=== PATIENT | female | born 1965 | race Caucasian/White ===

== ENCOUNTER → 2017-05-17 | Outpatient (REF) ==
[2014-12-26 15:25] VITALS: BP 133/68
[~2017-05-17] MED LIST: BIOTIN5 MG PO; CRANBERRY400 MG PO; HYOMAX0.125 MG PO; LEVOTHYROXIN0.088 MG PO; MECLIZINE25 MG PO; MIRALAX17 GM/DOSE PO; MULTI VITAMINS1 TAB PO; PATADAY 2.5 ML2.5 ML OP; PREMARIN 0.60.625 MG PO; REFRESH OPTIVE0.4 M1 OP; REFRESH PM1 OI1 OP; VENLAFAXINE75 MG PO; XALATAN EYE DROPS OD; [UNRECOGNIZED DRUG - OTHER] PO
== END ==
LOC: LAB 07:24
DX: Z00.00 Encounter for general adult medical examination without abnormal findings (principal); E03.9 Hypothyroidism, unspecified; E03.4 Atrophy of thyroid (acquired)

== ENCOUNTER → 2018-12-25 | Outpatient (CLI) | payer BC ==
[2014-12-26 15:25] VITALS: BP 133/68
== END ==
LOC: RAD 15:44
DX: R05 Cough (principal)

== ENCOUNTER → 2019-04-24 | Outpatient (CLI) | payer BC ==
[~2019-04-24] VITALS: Ht 165.1 cm; Wt 59.1 kg
[2019-04-24 11:00] VITALS: BP 110/66
--- NOTE | 2019-04-24 12:22 | NUR ---
Oskar Stearns APRN at bedside. Patient states that she is ok with her labs not being sent to [facility], and would like [facility] lab to run them here to get lab results back today. Lab notified.
[2019-04-24 12:23] LABS: URINE WBC 0 /hpf (0-3)
[2019-04-24 12:32] LABS: HEMATOCRIT 43.5 % (37.0-47.0); HEMOGLOBIN 14.3 g/dL (12.5-16.0); MEAN CELL VOLUME 93 fl (78-100); MEAN CORPUSCULAR HEMOGLOBIN 31 pg (27-31); MEAN CORPUSCULAR HGB CONC 33 g/dL (33-37); MEAN PLATELET VOLUME 9.8 fl (7.4-10.4); PLATELET COUNT 345 K/mm3 (130-400); RED BLOOD COUNT 4.66 M/mm3 (4.10-5.30); RED CELL DISTRIBUTION WIDTH 12.5 % (11.5-14.5); WHITE BLOOD COUNT 6.7 K/mm3 (4.8-10.8)
[2019-04-24 12:52] LABS: ALBUMIN 4.1 g/dL (3.5-5.0); ALT/SGPT 23 U/L (0-55); AST-SGOT 28 U/L (5-34); CALCIUM 10.2 mg/dL (8.4-10.2); CARBON DIOXIDE 26 mmol/L (22-29); GLUCOSE 93 mg/dL (65-105); LIPASE 29 U/L (8-78); POTASSIUM 3.8 mmol/L (3.5-5.1); SODIUM 139 mmol/L (136-145); TOTAL BILIRUBIN 0.3 mg/dL (0.2-1.2); TOTAL PROTEIN 7.4 g/dL (6.4-8.3)
[2019-04-24 13:09] LABS: TROPONIN-I < 0.03 ng/mL (<0.030)
[2019-04-24 15:52] VITALS: BP 145/78
[2019-04-25 06:43] LABS: URINE APPEARANCE HAZY; URINE COLOR YELLOW
[2019-04-25 06:44] LABS: URINE BILIRUBIN NEGATIVE (NEGATIVE); URINE BLOOD NEGATIVE (NEGATIVE); URINE GLUCOSE NEGATIVE (NEGATIVE); URINE KETONE NEGATIVE (NEGATIVE); URINE LEUKOCYTE ESTERASE NEGATIVE (NEGATIVE); URINE NITRATE NEGATIVE (NEGATIVE); URINE PROTEIN(semi-quant) NEGATIVE (NEGATIVE); URINE UROBILINOGEN NORMAL (NORMAL)
== END ==
LOC: AMSURD 10:50
PROVIDERS: Nurse Practitioner Family
DX: R91.8 Other nonspecific abnormal finding of lung field (principal); R11.0 Nausea; R51 Headache; R06.02 Shortness of breath; R42 Dizziness and giddiness; R06.00 Dyspnea, unspecified
CPT/HCPCS: J1885; J2405; J2930; J7030

== ENCOUNTER → 2020-07-24 | Outpatient (CLI) | payer BC ==
[2019-04-24 15:52] VITALS: BP 145/78
[2020-07-24 15:15] LABS: URINE APPEARANCE CLEAR; URINE BILIRUBIN NEGATIVE (NEGATIVE); URINE BLOOD NEGATIVE (NEGATIVE); URINE COLOR YELLOW; URINE GLUCOSE NEGATIVE (NEGATIVE); URINE KETONE NEGATIVE (NEGATIVE); URINE LEUKOCYTE ESTERASE NEGATIVE (NEGATIVE); URINE MUCUS PRESENT (NOT PRESENT); URINE NITRATE NEGATIVE (NEGATIVE); URINE PROTEIN(semi-quant) NEGATIVE (NEGATIVE); URINE UROBILINOGEN NORMAL (NORMAL); URINE WBC 0-1 /hpf (0-3)
== END ==
LOC: LAB 15:02
PROVIDERS: Internal Medicine
DX: R50.9 Fever, unspecified (principal)

== ENCOUNTER → 2020-07-29 | Outpatient (CLI) | payer BC ==
[2019-04-24 15:52] VITALS: BP 145/78
[2020-07-29 10:51] LABS: EOS # 0.1 (0.04-0.40); HEMATOCRIT 40.9 % (37.0-47.0); HEMOGLOBIN 13.4 g/dL (12.5-16.0); LYMPH# 1.3 (1.50-4.00); MEAN CELL VOLUME 96 fl (78-100); MEAN CORPUSCULAR HEMOGLOBIN 31 pg (27-31); MEAN CORPUSCULAR HGB CONC 33 g/dL (33-37); MEAN PLATELET VOLUME 9.5 fl (7.4-10.4); MONO # 0.5 (0.20-0.80); NEU # 4.1 (1.40-6.50); PLATELET COUNT 297 K/mm3 (130-400); RED BLOOD COUNT 4.28 M/mm3 (4.10-5.30); RED CELL DISTRIBUTION WIDTH 12.3 % (11.5-14.5); WHITE BLOOD COUNT 6.1 K/mm3 (4.8-10.8)
[2020-07-29 11:00] LABS: ALBUMIN 4.1 g/dL (3.5-5.0); POTASSIUM 4.9 mmol/L (3.5-5.1)
[2020-07-29 11:01] LABS: CALCIUM 10.1 mg/dL (8.3-10.5)
[2020-07-29 11:05] LABS: TOTAL BILIRUBIN 0.2 mg/dL (0.2-1.2)
[2020-07-29 11:50] LABS: ERYTHROCYTE SEDIMENTATION RATE 38 mm/hr (0-30)
[2020-07-30 00:39] LABS: T3 TOTAL 106 ng/dL (58-159)
== END ==
LOC: RAD 10:33
PROVIDERS: Internal Medicine
DX: Z00.00 Encounter for general adult medical examination without abnormal findings (principal); R06.02 Shortness of breath

== ENCOUNTER → 2020-08-05 | Outpatient (CLI) | payer BC ==
[2019-04-24 15:52] VITALS: BP 145/78
== END ==
LOC: RAD 08:00
DX: R91.1 Solitary pulmonary nodule (principal); R59.0 Localized enlarged lymph nodes; R06.02 Shortness of breath; R50.9 Fever, unspecified
CPT/HCPCS: Q9967

== ENCOUNTER → 2020-09-25 | Outpatient (CLI) | payer BC ==
[2019-04-24 15:52] VITALS: BP 145/78
== END ==
LOC: RAD 08:39
DX: R06.02 Shortness of breath (principal)

== ENCOUNTER → 2020-11-04 | Outpatient (CLI) | payer OTHER ==
[2019-04-24 15:52] VITALS: BP 145/78
[2020-11-04 22:39] LABS: IMMUNOGLOBULIN E, TOTAL 122 IU/mL (0-100)
[2020-11-04 23:11] LABS: IMMUNOGLOBULIN G 1180 mg/dL (552-1631)
[2020-11-06 05:53] LABS: ALTERNARIA TENUIS CNT 8.85 kU/L (()); ASPERGILLUS FUMIGATUS AL COUNT 0.96 kU/L (()); BERMUDA GRASS ALLERGEN COUNT 1.35 kU/L (()); CAT DANDER ALLERGEN COUNT <0.10 kU/L (()); CLADOSPORIUM ALLERGEN COUNT 0.42 kU/L (()); COCKROACH ALLERGEN COUNT <0.10 kU/L (()); COTTONWOOD TREE ALLERGEN COUNT 1.26 kU/L (()); DOG DANDER ALLERGEN COUNT <0.10 kU/L (()); DUST MITES (D.F.) ALLERG COUNT 0.68 kU/L (()); DUST MITES (D.P.) ALLERG COUNT 0.63 kU/L (()); ELM TREE ALLERGEN COUNT 2.76 kU/L (()); FIREBUSH ALLERGEN COUNT 0.17 kU/L (()); ROUGH MARSH ELDER ALLERG COUNT 0.56 kU/L (()); RUSSIAN THISTLE ALLERGEN COUNT 1.57 kU/L (()); SHORT RAGWEED ALLERGEN COUNT 0.78 kU/L (())
== END ==
LOC: LAB 07:14
PROVIDERS: Internal Medicine Pulmonary Disease
DX: J47.9 Bronchiectasis, uncomplicated (principal)

== ENCOUNTER → 2020-12-19 | Outpatient (CLI) | payer OTHER ==
[2019-04-24 15:52] VITALS: BP 145/78
[2020-12-19 10:37] LABS: EOS % 0.2 % (1.0-5.0); WHITE BLOOD COUNT 6.1 K/mm3 (4.8-10.8)
== END ==
LOC: LAB 07:10
PROVIDERS: Internal Medicine Pulmonary Disease
DX: E03.9 Hypothyroidism, unspecified (principal)

== ENCOUNTER → 2020-12-22 | Outpatient (CLI) | payer OTHER ==
[2019-04-24 15:52] VITALS: BP 145/78
== END ==
LOC: LAB 07:24
DX: J47.9 Bronchiectasis, uncomplicated (principal); J45.909 Unspecified asthma, uncomplicated

== ENCOUNTER → 2020-12-23 | Outpatient (CLI) | payer OTHER ==
[2019-04-24 15:52] VITALS: BP 145/78
== END ==
LOC: LAB 07:23
DX: J45.909 Unspecified asthma, uncomplicated (principal); J47.9 Bronchiectasis, uncomplicated

== ENCOUNTER → 2020-12-24 | Outpatient (CLI) | payer OTHER ==
[2019-04-24 15:52] VITALS: BP 145/78
== END ==
LOC: LAB 07:26
DX: J45.909 Unspecified asthma, uncomplicated (principal); J47.9 Bronchiectasis, uncomplicated

== ENCOUNTER → 2021-03-31 | Outpatient (CLI) | payer OTHER ==
[2019-04-24 15:52] VITALS: BP 145/78
[2021-03-31 07:17] LABS: EOS % 0.4 % (1.0-5.0); HEMATOCRIT 41.3 % (37.0-47.0); HEMOGLOBIN 13.7 g/dL (12.5-16.0); LYMPH# 1.6 (1.50-4.00); MEAN CELL VOLUME 94 fl (78-100); MEAN CORPUSCULAR HEMOGLOBIN 31 pg (27-31); MEAN CORPUSCULAR HGB CONC 33 g/dL (33-37); MEAN PLATELET VOLUME 9.4 fl (7.4-10.4); MONO # 0.5 (0.20-0.80); NEU # 2.4 (1.40-6.50); PLATELET COUNT 256 K/mm3 (130-400); RED BLOOD COUNT 4.38 M/mm3 (4.10-5.30); RED CELL DISTRIBUTION WIDTH 12.4 % (11.5-14.5); WHITE BLOOD COUNT 4.5 K/mm3 (4.8-10.8)
[2021-03-31 07:53] LABS: ALBUMIN 3.9 g/dL (3.5-5.0); POTASSIUM 4.5 mmol/L (3.5-5.1)
[2021-03-31 07:54] LABS: CALCIUM 8.9 mg/dL (8.3-10.5)
[2021-03-31 07:55] LABS: TOTAL PROTEIN 7.5 g/dL (6.4-8.3)
[2021-03-31 07:57] LABS: TOTAL BILIRUBIN 0.3 mg/dL (0.2-1.2)
[2021-03-31 08:21] LABS: ERYTHROCYTE SEDIMENTATION RATE 29 mm/hr (0-30)
[2021-03-31 17:45] LABS: T3 FREE 2.3 pg/mL (1.7-3.7)
== END ==
LOC: LAB 07:02
PROVIDERS: Internal Medicine
DX: Z00.00 Encounter for general adult medical examination without abnormal findings (principal)

== ENCOUNTER → 2021-07-27 | Outpatient (CLI) | payer OTHER ==
[2021-07-27 16:32] LABS: EOS # 0.01 (0.04-0.40); EOS % 0.2 % (1.0-5.0); HEMATOCRIT 39.8 % (37.0-47.0); HEMOGLOBIN 13.6 g/dL (12.5-16.0); LYMPH# 1.52 (1.50-4.00); MEAN CELL VOLUME 95 fl (78-100); MEAN CORPUSCULAR HEMOGLOBIN 32 pg (27-31); MEAN CORPUSCULAR HGB CONC 34 g/dL (33-37); MEAN PLATELET VOLUME 9.4 fl (7.4-10.4); MONO # 0.43 (0.20-0.80); PLATELET COUNT 207 K/mm3 (130-400); RED BLOOD COUNT 4.21 M/mm3 (4.10-5.30); RED CELL DISTRIBUTION WIDTH 11.7 % (11.5-14.5); WHITE BLOOD COUNT 4.9 K/mm3 (4.8-10.8)
[2021-07-27 16:42] LABS: ALBUMIN 4.1 g/dL (3.5-5.0)
[2021-07-27 16:43] LABS: POTASSIUM 4.2 mmol/L (3.5-5.1)
[2021-07-27 16:44] LABS: CALCIUM 9.9 mg/dL (8.3-10.5)
[2021-07-27 16:45] LABS: TOTAL PROTEIN 7.5 g/dL (6.4-8.3)
[2021-07-27 16:47] LABS: TOTAL BILIRUBIN 0.2 mg/dL (0.2-1.2)
== END ==
LOC: LAB 15:39
PROVIDERS: Internal Medicine
DX: E03.4 Atrophy of thyroid (acquired) (principal); B99.9 Unspecified infectious disease

== ENCOUNTER → 2021-10-26 | Outpatient (CLI) | payer OTHER ==
[2021-10-26 15:34] LABS: EOS # 0.03 K/mm3 (0.04-0.40); EOS % 0.6 % (1.0-5.0); HEMATOCRIT 41.5 % (37.0-47.0); HEMOGLOBIN 14.1 g/dL (12.5-16.0); LYMPH# 1.55 K/mm3 (1.50-4.00); MEAN CELL VOLUME 95 fl (78-100); MEAN CORPUSCULAR HEMOGLOBIN 32 pg (27-31); MEAN CORPUSCULAR HGB CONC 34 g/dL (33-37); MEAN PLATELET VOLUME 9.4 fl (7.4-10.4); MONO # 0.46 K/mm3 (0.20-0.80); NEU # 3.22 K/mm3 (1.40-6.50); PLATELET COUNT 223 K/mm3 (130-400); RED BLOOD COUNT 4.36 M/mm3 (4.10-5.30); RED CELL DISTRIBUTION WIDTH 11.7 % (11.5-14.5); WHITE BLOOD COUNT 5.3 K/mm3 (4.8-10.8)
[2021-10-26 15:46] LABS: ALBUMIN 4.3 g/dL (3.5-5.0); POTASSIUM 4.2 mmol/L (3.5-5.1)
[2021-10-26 15:47] LABS: CALCIUM 9.8 mg/dL (8.3-10.5)
[2021-10-26 15:48] LABS: TOTAL PROTEIN 8.2 g/dL (6.4-8.3)
[2021-10-26 15:50] LABS: TOTAL BILIRUBIN 0.3 mg/dL (0.2-1.2)
[2021-10-26 16:40] LABS: ERYTHROCYTE SEDIMENTATION RATE 12 mm/hr (0-30)
== END ==
LOC: LAB 15:21
PROVIDERS: Internal Medicine Infectious Disease
DX: B99.9 Unspecified infectious disease (principal)

== ENCOUNTER → 2021-11-10 | Outpatient (CLI) | payer OTHER | LOC: LAB 16:35 | DX: J47.9 Bronchiectasis, uncomplicated (principal) ==

== ENCOUNTER → 2021-11-16 | Outpatient (CLI) | payer OTHER | LOC: LAB 07:47 | DX: J47.9 Bronchiectasis, uncomplicated (principal) ==

== ENCOUNTER → 2021-11-18 | Outpatient (CLI) | payer OTHER | LOC: LAB 07:15 | DX: J47.9 Bronchiectasis, uncomplicated (principal) ==

== ENCOUNTER → 2022-04-12 | Outpatient (CLI) | payer OTHER ==
[2022-04-12 08:59] LABS: BASO # 0.01 K/mm3 (0.02-0.10); EOS # 0.07 K/mm3 (0.04-0.40); EOS % 1.2 % (1.0-5.0); HEMATOCRIT 41.6 % (37.0-47.0); LYMPH# 1.57 K/mm3 (1.50-4.00); MEAN CELL VOLUME 95 fl (78-100); MEAN CORPUSCULAR HEMOGLOBIN 32 pg (27-31); MEAN CORPUSCULAR HGB CONC 34 g/dL (33-37); MEAN PLATELET VOLUME 10.2 fl (7.4-10.4); MONO # 0.43 K/mm3 (0.20-0.80); NEU # 3.65 K/mm3 (1.40-6.50); PLATELET COUNT 228 K/mm3 (130-400); WHITE BLOOD COUNT 5.7 K/mm3 (4.8-10.8)
[2022-04-12 09:16] LABS: ALBUMIN 4.2 g/dL (3.5-5.0); POTASSIUM 4.3 mmol/L (3.5-5.1)
[2022-04-12 09:17] LABS: CALCIUM 9.1 mg/dL (8.3-10.5)
[2022-04-12 09:18] LABS: TOTAL PROTEIN 7.4 g/dL (6.4-8.3)
[2022-04-12 09:20] LABS: TOTAL BILIRUBIN 0.3 mg/dL (0.2-1.2)
[2022-04-12 10:09] LABS: ERYTHROCYTE SEDIMENTATION RATE 16 mm/hr (0-30)
[2022-04-12 12:59] LABS: PH-URINE 5.5 (5.0 - 8.0); URINE APPEARANCE HAZY; URINE BILIRUBIN NEGATIVE (NEGATIVE); URINE BLOOD NEGATIVE (NEGATIVE); URINE COLOR YELLOW; URINE GLUCOSE NEGATIVE (NEGATIVE); URINE KETONE NEGATIVE (NEGATIVE); URINE LEUKOCYTE ESTERASE NEGATIVE (NEGATIVE); URINE NITRATE NEGATIVE (NEGATIVE); URINE PROTEIN(semi-quant) NEGATIVE (NEGATIVE); URINE UROBILINOGEN NORMAL (NORMAL); URINE WBC 0-1 /hpf (0-3)
[2022-04-12 13:00] LABS: URINE MUCUS PRESENT (NOT PRESENT)
[2022-04-13 10:47] LABS: T3 TOTAL 87 ng/dL (35-193)
== END ==
LOC: LAB 07:24
PROVIDERS: Internal Medicine
DX: Z00.00 Encounter for general adult medical examination without abnormal findings (principal)

== ENCOUNTER → 2022-05-11 | Outpatient (CLI) | payer OTHER | LOC: RAD 15:59 → MAMMO 15:59 | DX: Z13.820 Encounter for screening for osteoporosis (principal); M81.0 Age-related osteoporosis without current pathological fracture ==

== ENCOUNTER → 2022-07-05 | Outpatient (CLI) | payer OTHER | LOC: LAB 09:27 | DX: U07.1 COVID-19 (principal) ==

== ENCOUNTER → 2022-09-30 | Outpatient (CLI) | payer OTHER | LOC: LAB 08:12 | DX: J47.9 Bronchiectasis, uncomplicated (principal) ==

== ENCOUNTER → 2022-11-05 | Outpatient (CLI) | payer OTHER ==
[2022-11-05 07:52] LABS: POTASSIUM 4.7 mmol/L (3.5-5.1)
[2022-11-05 07:53] LABS: ALBUMIN 4.2 g/dL (3.5-5.0)
[2022-11-05 07:54] LABS: CALCIUM 9.4 mg/dL (8.3-10.5)
[2022-11-05 07:55] LABS: TOTAL PROTEIN 7.5 g/dL (6.4-8.3)
[2022-11-05 07:57] LABS: TOTAL BILIRUBIN 0.3 mg/dL (0.2-1.2)
== END ==
LOC: LAB 07:31
PROVIDERS: Internal Medicine
DX: Z23 Encounter for immunization (principal); E03.4 Atrophy of thyroid (acquired); E78.2 Mixed hyperlipidemia

== ENCOUNTER → 2023-08-15 | Outpatient (CLI) | payer OTHER ==
[~2023-08-15] MED LIST changes: +AZITHROMYCIN 250MGPK PO; +PREMARIN 0.60.625 M1 PO; +ROSUVASTATIN CAL5 MG PO; +SINGULAIR 110 MG/TAB PO; +SYNTHROID112 MCG PO; +VENLAFAXINE HY150 MG PO
[2023-08-15 09:02] LABS: EOS # 0.08 K/mm3 (0.04-0.40); EOS % 1.4 % (1.0-5.0); LYMPH# 1.43 K/mm3 (1.50-4.00); MEAN CELL VOLUME 97 fl (78-100); MEAN CORPUSCULAR HEMOGLOBIN 32 pg (27-31); MEAN CORPUSCULAR HGB CONC 33 g/dL (33-37); MEAN PLATELET VOLUME 9.6 fl (7.4-10.4); MONO # 0.46 K/mm3 (0.20-0.80); NEU # 3.61 K/mm3 (1.40-6.50); PLATELET COUNT 198 K/mm3 (130-400); RED BLOOD COUNT 4.35 M/mm3 (4.10-5.30); RED CELL DISTRIBUTION WIDTH 11.8 % (11.5-14.5); WHITE BLOOD COUNT 5.6 K/mm3 (4.8-10.8)
[2023-08-15 09:12] LABS: ALBUMIN 4.1 g/dL (3.5-5.0); POTASSIUM 4.7 mmol/L (3.5-5.1)
[2023-08-15 09:13] LABS: CALCIUM 9.3 mg/dL (8.3-10.5)
[2023-08-15 09:15] LABS: TOTAL PROTEIN 7.2 g/dL (6.4-8.3)
[2023-08-15 09:16] LABS: TOTAL BILIRUBIN 0.4 mg/dL (0.2-1.2)
[2023-08-15 10:32] LABS: ERYTHROCYTE SEDIMENTATION RATE 21 mm/hr (0-30)
== END ==
LOC: LAB 08:49
PROVIDERS: Internal Medicine
DX: Z00.00 Encounter for general adult medical examination without abnormal findings (principal); Z12.11 Encounter for screening for malignant neoplasm of colon; J47.9 Bronchiectasis, uncomplicated; E03.4 Atrophy of thyroid (acquired); E78.2 Mixed hyperlipidemia; A31.0 Pulmonary mycobacterial infection; K90.9 Intestinal malabsorption, unspecified

== ENCOUNTER → 2023-11-29 | Outpatient (CLI) | payer OTHER | LOC: LAB 14:51 | DX: E03.4 Atrophy of thyroid (acquired) (principal) ==

== ENCOUNTER → 2024-01-06 | Outpatient (CLI) | payer OTHER ==
[2024-01-06 14:15] LABS: CALCIUM 9.5 mg/dL (8.3-10.5)
== END ==
LOC: LAB 13:49
PROVIDERS: Internal Medicine
DX: E03.4 Atrophy of thyroid (acquired) (principal); Z79.899 Other long term (current) drug therapy

== ENCOUNTER → 2024-04-13 | Outpatient (CLI) | payer OTHER ==
[2024-05-30 13:09] LABS: CALCIUM 9.5 mg/dL (8.3-10.5); TOTAL BILIRUBIN 0.4 mg/dL (0.2-1.2); TOTAL PROTEIN 6.8 g/dL (6.4-8.3)
[2024-05-30 13:10] LABS: BASO # 0.04 K/mm3 (0.02-0.10); EOS # 0.24 K/mm3 (0.04-0.40); EOS % 4.7 % (1.0-5.0); HEMATOCRIT 39.6 % (37.0-47.0); HEMOGLOBIN 13.8 g/dL (12.5-16.0); LYMPH# 1.55 K/mm3 (1.50-4.00); MEAN CELL VOLUME 98 fl (78-100); MEAN CORPUSCULAR HEMOGLOBIN 34 pg (27-31); MEAN CORPUSCULAR HGB CONC 35 g/dL (33-37); MEAN PLATELET VOLUME 10.5 fl (7.4-10.4); MONO # 0.41 K/mm3 (0.20-0.80); NEU # 2.89 K/mm3 (1.40-6.50); PLATELET COUNT 242 K/mm3 (130-400); RED BLOOD COUNT 4.03 M/mm3 (4.10-5.30); WHITE BLOOD COUNT 5.1 K/mm3 (4.8-10.8)
== END ==
LOC: LAB 08:00
PROVIDERS: Internal Medicine
DX: A31.9 Mycobacterial infection, unspecified (principal); Z79.899 Other long term (current) drug therapy

== ENCOUNTER → 2024-05-09 | Outpatient (CLI) | payer OTHER ==
[2024-05-09 07:48] LABS: BASO # 0.01 K/mm3 (0.02-0.10); EOS # 0.14 K/mm3 (0.04-0.40); EOS % 2.9 % (1.0-5.0); HEMATOCRIT 38.2 % (37.0-47.0); HEMOGLOBIN 13.2 g/dL (12.5-16.0); LYMPH# 1.18 K/mm3 (1.50-4.00); MEAN CELL VOLUME 98 fl (78-100); MEAN CORPUSCULAR HEMOGLOBIN 34 pg (27-31); MEAN CORPUSCULAR HGB CONC 35 g/dL (33-37); MEAN PLATELET VOLUME 9.7 fl (7.4-10.4); MONO # 0.37 K/mm3 (0.20-0.80); PLATELET COUNT 232 K/mm3 (130-400); RED BLOOD COUNT 3.91 M/mm3 (4.10-5.30); RED CELL DISTRIBUTION WIDTH 12.9 % (11.5-14.5); WHITE BLOOD COUNT 4.9 K/mm3 (4.8-10.8)
[2024-05-09 07:55] LABS: CALCIUM 9.2 mg/dL (8.3-10.5)
[2024-05-09 07:56] LABS: TOTAL PROTEIN 6.7 g/dL (6.4-8.3)
[2024-05-09 07:58] LABS: TOTAL BILIRUBIN 0.4 mg/dL (0.2-1.2)
== END ==
LOC: LAB 07:28
PROVIDERS: Internal Medicine
DX: A31.9 Mycobacterial infection, unspecified (principal); E03.4 Atrophy of thyroid (acquired); E61.1 Iron deficiency; Z79.899 Other long term (current) drug therapy

== ENCOUNTER → 2024-07-27 | Outpatient (REF) | payer OTHER | LOC: LAB 15:01 | DX: R05.9 Cough, unspecified (principal); Z20.822 Contact with and (suspected) exposure to COVID-19 ==

== ENCOUNTER → 2024-11-15 | Outpatient (CLI) | payer OTHER ==
[2024-11-15 08:14] LABS: BASO # 0.02 K/mm3 (0.02-0.10); EOS # 0.14 K/mm3 (0.04-0.40); EOS % 1.8 % (1.0-5.0); HEMATOCRIT 37.9 % (37.0-47.0); LYMPH# 1.17 K/mm3 (1.50-4.00); MEAN CELL VOLUME 96 fl (78-100); MEAN CORPUSCULAR HEMOGLOBIN 33 pg (27-31); MEAN CORPUSCULAR HGB CONC 34 g/dL (33-37); MEAN PLATELET VOLUME 9.7 fl (7.4-10.4); MONO # 0.52 K/mm3 (0.20-0.80); NEU # 6.14 K/mm3 (1.40-6.50); PLATELET COUNT 255 K/mm3 (130-400); RED BLOOD COUNT 3.93 M/mm3 (4.10-5.30); RED CELL DISTRIBUTION WIDTH 13.6 % (11.5-14.5)
[2024-11-15 08:19] LABS: CALCIUM 9.2 mg/dL (8.3-10.5)
[2024-11-15 08:20] LABS: TOTAL PROTEIN 6.9 g/dL (6.4-8.3)
[2024-11-15 08:22] LABS: TOTAL BILIRUBIN 0.5 mg/dL (0.2-1.2)
== END ==
LOC: LAB 07:47
PROVIDERS: Internal Medicine
DX: A31.9 Mycobacterial infection, unspecified (principal); Z79.899 Other long term (current) drug therapy

== ENCOUNTER → 2025-01-04 | Outpatient (CLI) | payer BC ==
[2025-01-04 08:06] LABS: BASO # 0.01 K/mm3 (0.02-0.10); EOS % 1.2 % (1.0-5.0); HEMOGLOBIN 13.5 g/dL (12.5-16.0); MEAN CELL VOLUME 98 fl (78-100); MEAN CORPUSCULAR HEMOGLOBIN 33 pg (27-31); MEAN CORPUSCULAR HGB CONC 34 g/dL (33-37); MEAN PLATELET VOLUME 9.6 fl (7.4-10.4); MONO # 0.47 K/mm3 (0.20-0.80); NEU # 6.29 K/mm3 (1.40-6.50); PLATELET COUNT 263 K/mm3 (130-400); RED CELL DISTRIBUTION WIDTH 13.4 % (11.5-14.5); WHITE BLOOD COUNT 8.1 K/mm3 (4.8-10.8)
[2025-01-04 08:23] LABS: CALCIUM 9.4 mg/dL (8.3-10.5)
[2025-01-04 08:25] LABS: TOTAL PROTEIN 7.7 g/dL (6.4-8.3)
[2025-01-04 08:26] LABS: TOTAL BILIRUBIN 0.5 mg/dL (0.2-1.2)
== END ==
LOC: LAB 07:48
PROVIDERS: Internal Medicine
DX: A31.9 Mycobacterial infection, unspecified (principal); Z79.899 Other long term (current) drug therapy